=== PATIENT | female | born 1960 | race Caucasian/White ===

== ENCOUNTER 2020-10-13 09:06 | Day surgery (SDC) | payer OTHER ==
[~2020-10-13] VITALS: Ht 185.4 cm; Wt 93.4 kg
[2020-10-13 10:31] VITALS: BP 145/57
[2020-10-13 16:56] VITALS: BP 129/68
== END 2020-10-13 14:50 | disposition home or self-care (01) ==
LOC: DS 09:06 → GI 14:00 → OR 14:00 → DS 14:50
PROVIDERS: ATTEND Internal Medicine Gastroenterology
DX: R19.5 Other fecal abnormalities (principal); K64.8 Other hemorrhoids; K63.89 Other specified diseases of intestine; Z79.82 Long term (current) use of aspirin
CPT/HCPCS: 45378; J1200; J1610; J2250; J2310; J3010; J3490